=== PATIENT | male | born 1950 | race Caucasian/White ===

== ENCOUNTER 2019-07-02 11:29 | Inpatient (IN) | payer MEDICARE, BC ==
[~2019-07-02] VITALS: Ht 167.6 cm; Wt 76.2 kg
[2019-07-02 12:09] LABS: BASOPHILS ABSOLUTE AUTO 0.03 K/mm3 (0.00-0.23); BASOPHILS PERCENT AUTO 0 % (0-2); EOSINOPHILS PERCENT AUTO 1 % (0-6); Hematocrit 46.5 % (37.0-53.0); Hemoglobin 15.4 g/dL (13.5-17.5); IMMATURE GRAN ABSOLUTE AUTO 0.02 K/mm3 (0.00-0.10); IMMATURE GRAN PERCENT AUTO 0 % (0-1); LYMPHOCYTES ABSOLUTE AUTO 1.55 K/mm3 (0.84-5.20); LYMPHOCYTES PERCENT AUTO 19 % (21-46); MONOCYTES ABSOLUTE AUTO 0.53 K/mm3 (0.16-1.47); MONOCYTES PERCENT AUTO 7 % (4-13); Mean Corpuscular HGB 30.7 pg (26.0-34.0); Mean Corpuscular HGB Conc 33.1 g/dL (31.5-36.5); Mean Corpuscular Volume 93 fL (80-100); Mean Platelet Volume 10.2 fL (9.1-12.4); NEUTROPHILS ABSOLUTE AUTO 5.93 K/mm3 (1.96-9.15); NEUTROPHILS PERCENT AUTO 73 % (41-73); Platelet Count 209 K/mm3 (150-400); RDW Coefficient Variation 12.2 % (11.7-14.2); RDW Standard Deviation 41.5 fL (35.1-46.3); Red Blood Cell Count 5.01 M/mm3 (4.30-5.90); White Blood Cell Count 8.16 K/mm3 (4.00-11.30)
[2019-07-02 12:15] LABS: Calcium, Ionized (POC) 1.16 mmol/L (1.10-1.46); Chloride (POC) 108 mmol/L (98-108); Creatinine (POC) 1.1 mg/dL (0.8-1.3); Glucose (ISTAT POC) 119 mg/dL (70-99); Hemoglobin (POC) 14.6 g/dL (13.5-17.5); Potassium (POC) 4.3 mmol/L (3.5-5.5); Sodium (POC) 142 mmol/L (135-148); Total CO2 (POC) 27 mmol/L (21-32)
[2019-07-02 12:33] LABS: Alanine Aminotransfer (ALT/SGP 29 U/L (12-78); Albumin, Blood 4.2 g/dL (3.4-5.0); Alk Phos 59 U/L (50-136); Anion Gap 6 mmol/L (6-16); Aspartate Aminotrans (AST/SGOT 22 U/L (12-37); Bilirubin, Total 0.5 mg/dL (0.1-1.0); Blood Urea Nitrogen 15 mg/dL (8-24); Bun/Creatinine Ratio 15.3 (12.0-20.0); CO2, Blood 27 mmol/L (21-32); Calcium, Blood 9.2 mg/dL (8.5-10.1); Chloride, Blood 109 mmol/L (98-108); Creatinine, Blood 0.98 mg/dL (0.60-1.20); Globulin, Blood 4.1 g/dL (2.2-4.0); Glomerular Filtration Rate >60 (60-); Glucose, Blood 116 mg/dL (70-99); Potassium, Blood 3.8 mmol/L (3.5-5.5); Sodium, Blood 142 mmol/L (136-145); Total Protein, Blood 8.3 g/dL (6.4-8.2); Troponin I 0.123 ng/mL (0.000-0.040)
--- NOTE | 2019-07-02 15:00 | NUR ---
PT ADMIT PT ADMIT FROM LINOLEUM LAYER VIA BED POST RCA STENT PLACEMENT VIA RADIAL APPROACH. TR BAND IN PLACE WITH 9ML OF AIR IN CUSHION PER LINOLEUM LAYER RN. PT VERY PLEASENT CALM AND COOPREATIVE, FOLLOWS ALL COMMANDS AND DENIIES PAIN AT THIS TIME. SB IN THE 40-50S NO ECTOPY SBP STABLE. WARM DRY SKIN WITH PALP PULSES T/O AND REJI ON RIGHT RADIAL. RA WITH SATS IN THE HIGH 90S. CLEAR T/O. ABD SOFT FLAT AND NON TENDER. WILL CONT TO MONITOR
[2019-07-02 16:06] LABS: Anion Gap 7 mmol/L (6-16); Blood Urea Nitrogen 14 mg/dL (8-24); Bun/Creatinine Ratio 14.7 (12.0-20.0); CO2, Blood 21 mmol/L (21-32); Calcium, Blood 8.1 mg/dL (8.5-10.1); Chloride, Blood 113 mmol/L (98-108); Cholesterol 156 mg/dL (50-200); Creatinine, Blood 0.95 mg/dL (0.60-1.20); Glomerular Filtration Rate >60 (60-); Glucose, Blood 102 mg/dL (70-99); HDL Cholesterol 39 mg/dL (>39); LDL/HDL RATIO 2.8; Low Density Lipoprotein Chol 109 mg/dL (0-110); Potassium, Blood 4.1 mmol/L (3.5-5.5); Sodium, Blood 141 mmol/L (136-145); Triglycerides 41 mg/dL (30-160); Very Low Density Lipoprot Chol 8 mg/dL (6-32)
--- NOTE | 2019-07-02 16:30 | NUR ---
PT UPDATE PT REMAINS STABLE AND DENIES PAIN AT THIS TIME. VSS AND REMAINS IN SB. TR BAND BALOON REDUCED TO 7ML PER PROTOCOL. RA WITH SATS WNL NO CP AT THIS TIME. TOLERATING PO INTAKE. WILL CONT TO MONITOR
--- NOTE | 2019-07-02 18:30 | NUR ---
PT UPDATE PT REMAINS STABLE, SB AND SBP STABLE, PALP PULSES T/O EXCLUDING RIGHT RADIAL R/T TR BAND. TR BAND BALOON DEFLATED TO 5ML. PT UP TO BATHROOM WITH NO ISSUES. BROWN SOFT FORMED BM. GOOD APPETITE. WILL CONT TO MONITOR
--- NOTE | 2019-07-02 20:00 | NUR ---
ASSUMPTION OF CARE ASSUMED CARE OF PT AT 1900, PT RESTING IN BED, A&O x4, DENIES CP AND SOB. O2 SATURATIONS 100% ON RA, MONITOR SHOWS NSR TO SINUS JOCELYN, 15 BEAT RUN OF UNSUSTAINED VTACH @ APPROX 1909, PT DENIED ANY CP/DISCOMFORT/SOB WITH EVENT. TR BAND IN PLACE WITH 5ml OF AIR, BRUSING AND SMALL HEMATOMA NOTED PROXIMAL TO INSERTION SITE, PT STS TENDER WITH PRESSURE/PALPATION, GOOD CAP REFILL AND SENSATION DISTAL TO INSERTION SITE. PT DENIES ANY GI/ ISSUES.
--- NOTE | 2019-07-03 06:27 | NUR ---
SHIFT SUMMARY PT REMAINS STABLE THOUGHOUT SHIFT, DENIES CP/SOB OR OTHER DISCOMFORT. O2 SATURATIONS MAINTAINED ABOVE 95% ON RA, LS CLEAR. MONITOR SHOWS NSR TO SINUS JOCELYN, RATE 45-60'S, FEW RUNS OF NONSUSTAINED VTACH NOTED (SEE RHYTHM STRIPS IN PTS CHART). R RADIAL SITE C/D/I, OPSITE IN PLACE, BRUISING/HEMATOMA NOTED PROXIMAL TO INSERTION SITE, SIZE UNCHANGED T/O SHIFT, DISTAL LIMB WARM WITH GOOD CAP REFILL AND SENSATION. PT UP TO BEDSIDE TOILET THIS SHIFT, STAND BY ASSIST, NORMAL GAIT, DENIES DIZZINESS/CP/SOB WITH AMBULATION. NO COMPLAINTS OF ANY GI/ ISSUES.
--- NOTE | 2019-07-03 07:22 | NUR ---
START OF SHIFT NOTE: RECEIVED REPORT FROM JOHN PERRY RN, ASSUMED CARE, PATIENT SLEEPING BUT EASILY AROUSEABLE, PATIENT IS [place], HEARING AIDS AT BEDSIDE, SLIGHTLY ELEVATED TEMP AT 99.1, VSS WITH HR IN 40'S WHILE SLEEPING, HOWEVER, PATIENT IS A RUNNER AND HIS RESTING HR IS LOW PER PATIENT, SBP'S IN 100'S, O2 SATURATION IN UPPER 90'S, PATIENT IS ALERT AND ORIENTED, LUNG SOUNDS ARE CLEAR, SR/SB, BOWEL TONES HYPOACTIVE, PATIENT GETS UP TO ROOM TOILET WITH SBA ONLY, PEDAL PULSES STRONG, DENIES PAIN, REPORTS NO CHEST PAIN/DISCOMFORT, NO SOB, NO N/V, ECHO ORDERED FOR THIS AM, RIGHT RADIAL ACCESS SITE SHOWS NO HEMATOMA, NONTENDER, NO BLEEDING, SOFT, COVERED WITH TEGADERM, ARMBOARD IN PLACE, CALL LIGHT IN REACH, WILL CONTINUE TO MONITOR.
--- NOTE | 2019-07-03 09:56 | NUR ---
PATIENT UP TO ROOM TOILET WITH SBA ONLY, REMOVED FROM TELE FOR BRIEF PERIOD, INSTRUCTED TO USE CALL LIGHT WHEN DONE, PATIENT VERBALIZED UNDERSTANDING.
--- NOTE | 2019-07-03 10:15 | NUR ---
DR. CONTRERAS IN TO SEE PATIENT, WILL DISCHARGE HOME THIS AFTERNOON.
--- NOTE | 2019-07-03 10:28 | NUR ---
Echocardiogram completed.
[2019-07-03] MEDS ORDERED: ASPI81CH PO (11:38)
[2019-07-03] MEDS ORDERED: ATOR40TA PO (11:39)
[2019-07-03] MEDS ORDERED: CLOP75 PO (11:41)
--- NOTE | 2019-07-03 14:15 | NUR ---
PATIENT DISCHARGED TO HOME, DISCHARGE INSTRUCTIONS WRITTEN AND VERBAL PROVIDED AND EXPLAINED, PATIENT AND FAMILY MEMBERS VERBALIZED UNDERSTANDING AND PATIENT SIGNED DISCHARGE DOCUMENTATION, PIV IN L AC REMOVED WITH TIP AND TUBING INTACT, PATIENT TOLERATED WELL, MONITOR LEADS REMOVED, PATIENT GETTING DRESSED, DAUGHTER AND SON-IN-LAW ARE HERE TO PROVIDE RIDE HOME, PATIENT WAS WHEELED TO HOSPITAL ENTRANCE AND DAUGHTER WAS AWAITING PATIENT WITH CAR TO GIVE RIDE HOME.
== END 2019-07-03 14:15 | disposition home or self-care (01) | DRG 247 ==
LOC: ER 11:29 → ICUW 12:01 → ICUE 12:38
PROVIDERS: Emergency Medicine; ADMIT Internal Medicine Interventional Cardiology
PROC: 4A023N7 Measurement of Cardiac Sampling and Pressure, Left Heart, Percutaneous Approach (ICD-10-PCS; principal; 2019-07-02)
PROC: 027034Z Dilation of Coronary Artery, One Artery with Drug-eluting Intraluminal Device, Percutaneous Approach (ICD-10-PCS; 2019-07-02)
PROC: B211YZZ Fluoroscopy of Multiple Coronary Arteries using Other Contrast (ICD-10-PCS; 2019-07-02)
PROC: 3E02340 Introduction of Influenza Vaccine into Muscle, Percutaneous Approach (ICD-10-PCS; 2019-07-02)
DX: I21.19 ST elevation (STEMI) myocardial infarction involving other coronary artery of inferior wall (principal); I25.10 Atherosclerotic heart disease of native coronary artery without angina pectoris; Z23 Encounter for immunization
CPT/HCPCS: 36415; 80047; 80048; 80053; 80061; 84484; 85014; 85025; 85347; 90686; 92920; 93005; 93010; 93306; 93454; 99152; 99153; 99285-25; C1725; C1769; C1874; C1887; C1894; C9606; G0008; J0461; J1644; J2250; J3010; J7030; Q9967

== ENCOUNTER 2021-09-17 07:22 | Emergency (ER) | payer MEDICARE, BC ==
[~2021-09-17] VITALS: Ht 167.6 cm; Wt 72.6 kg
[~2021-09-17 07:22] MED LIST: ASPI81CH PO; ATOR40TA PO; CLOP75 PO
[2021-09-17] MEDS ORDERED: METF500 PO (07:33)
[2021-09-17] MEDS ORDERED: HYDR1TAB94 PO (08:46)
[2021-09-17] MEDS ORDERED: CEPH500 PO (08:46)
== END 2021-09-17 09:31 | disposition home or self-care (01) ==
LOC: ER 07:22
DX: L03.113 Cellulitis of right upper limb (principal); E11.9 Type 2 diabetes mellitus without complications; Z79.2 Long term (current) use of antibiotics; Z79.899 Other long term (current) drug therapy; Z79.84 Long term (current) use of oral hypoglycemic drugs
CPT/HCPCS: 73130; 99283-25; A9270

== ENCOUNTER 2022-01-17 07:21 | Day surgery (SDC) | payer MEDICARE, BC ==
[~2022-01-17] VITALS: Ht 167.6 cm; Wt 67.7 kg
[~2022-01-17 07:21] MED LIST changes: +CEPH500 PO; +HYDR1TAB94 PO; +METF500 PO
== END 2022-01-17 09:16 | disposition home or self-care (01) ==
LOC: ORSCSDS 07:21
PROVIDERS: Surgery
PROC: 0DJD8ZZ Inspection of Lower Intestinal Tract, Via Natural or Artificial Opening Endoscopic (ICD-10-PCS; principal; 2022-01-17 08:30)
DX: Z12.11 Encounter for screening for malignant neoplasm of colon (principal); Z86.010 Personal history of colon polyps; K57.30 Diverticulosis of large intestine without perforation or abscess without bleeding; E11.9 Type 2 diabetes mellitus without complications; Z79.84 Long term (current) use of oral hypoglycemic drugs; Z79.82 Long term (current) use of aspirin; I25.10 Atherosclerotic heart disease of native coronary artery without angina pectoris; E78.49 Other hyperlipidemia; Z79.899 Other long term (current) drug therapy
CPT/HCPCS: 82947; J2704; J7120

== ENCOUNTER → 2023-11-05 | Outpatient (CLI) | payer MEDICARE, BC ==
[2023-11-05 16:44] LABS: BASOPHILS ABSOLUTE AUTO 0.02 K/mm3 (0.00-0.23); BASOPHILS PERCENT AUTO 0 % (0-2); EOSINOPHILS ABSOLUTE AUTO 0.12 K/mm3 (0.00-0.68); EOSINOPHILS PERCENT AUTO 2 % (0-6); Hematocrit 39.4 % (37.0-53.0); Hemoglobin 13.1 g/dL (13.5-17.5); IMMATURE GRAN ABSOLUTE AUTO 0.01 K/mm3 (0.00-0.10); IMMATURE GRAN PERCENT AUTO 0 % (0-1); LYMPHOCYTES ABSOLUTE AUTO 2.13 K/mm3 (0.84-5.20); LYMPHOCYTES PERCENT AUTO 36 % (21-46); MONOCYTES ABSOLUTE AUTO 0.57 K/mm3 (0.16-1.47); MONOCYTES PERCENT AUTO 10 % (4-13); Mean Corpuscular HGB 30.5 pg (26.0-34.0); Mean Corpuscular HGB Conc 33.2 g/dL (31.5-36.5); Mean Corpuscular Volume 92 fL (80-100); Mean Platelet Volume 10.6 fL (9.1-12.4); NEUTROPHILS ABSOLUTE AUTO 3.15 K/mm3 (1.96-9.15); NEUTROPHILS PERCENT AUTO 53 % (41-73); Platelet Count 186 K/mm3 (150-400); RDW Coefficient Variation 12.6 % (11.7-14.2); RDW Standard Deviation 42.2 fL (35.1-46.3)
[2023-11-05 17:09] LABS: Albumin, Blood 3.9 g/dL (3.4-5.0); Albumin/Globulin Ratio 1.1 (0.8-1.8); Bilirubin, Total 0.4 mg/dL (0.1-1.0); Bun/Creatinine Ratio 20.8 (12.0-20.0); Calcium, Blood 9.2 mg/dL (8.5-10.1); Creatinine, Blood 0.91 mg/dL (0.60-1.20); Globulin, Blood 3.6 g/dL (2.2-4.0); Potassium, Blood 4.6 mmol/L (3.5-5.5); Total Protein, Blood 7.5 g/dL (6.4-8.2)
== END | disposition home or self-care (01) ==
LOC: LAB 15:50 → LAB SHORT 15:50
PROVIDERS: Physician Assistant
DX: R10.13 Epigastric pain (principal)
CPT/HCPCS: 80053; 83690; 85025